=== PATIENT | male | born 1995 | race African-American/Black ===

== ENCOUNTER 2019-01-05 07:10 | Emergency (ER) | payer SELFPAY ==
[2019-01-05] MEDS ORDERED: ASPIRIN 81 MG CHEW TAB PO ONE (07:16)
[2019-01-05] MEDS ORDERED: 0.9 % SODIUM CHLORIDE 1,000 ML IV ONE (07:17)
--- NOTE | 2019-01-05 07:32 | ED Physician Documentation ---
General Adult - HISTORIAN Historian: patient - HPI Stated Complaint: chest pain Chief Complaint: Chest Pain Onset: hours (3) Timing: still present Severity: moderate Further Comments: yes (He states he has had a "cold" for about one week. He denies a fever. He has had a cough. He started around 3 am with chest pain on right side. he states the pain is increased with palpation to a "certain spot". Denies any other complaints. No nausea, denies any shortness of breath. No injury.) - ROS CONST: recent illness EYES/ENT: sore throat, nasal drainage, nasal congestion CVS/RESP: chest pain, cough. denies: shortness of breath GI/: none MS/SKIN/LYMPH: none NEURO/PSYCH: denies: headache, fainting, dizziness, tingling, numbness, difficulty walking, difficulty with speech, anxiety, depression - PAST HX Past History: none Surgeries/Procedures: none Immunizations: UTD Allergies/Adverse Reactions: Allergies Allergy/AdvReac Type Severity Reaction Status Date / Time No Known Allergies Allergy Unverified 01/05/19 08:25 Home Medications: Ambulatory Orders Medication Instructions Recorded NK 01/05/19 - SOCIAL HX Smoking History: non-smoker Alcohol Use: none Drug Use: none - FAMILY HX Family History: No - REVIEWED ASSESSMENTS Nursing Assessment Reviewed: Yes Vitals Reviewed: Yes Progress - Progress Progress: 0812: discussed findings. Will attempt med for pain relief. He is agreeable DG 0820: discussed plan of care. Pain is improved DG ED Results Lab/Radiology - Radiology Radiology Impressions: Examination: Portable chest History: Evaluate lungs. Sudden right side CP Comparison exam: None provided. Findings: Single view of the chest demonstrates a normal cardiac and mediastinal silhouette. Lung perez without focal infiltrate. No blunting of the costophrenic margins. Osseous structures are appropriate for age. Impression: No acute pulmonary process. Electronically signed on Jan 05, 2019 8:00:06 AM [employer]PORATION OFFICER by: Ernesto Styles - Orders Orders: ED Orders Category Date Time Status Continuous EKG monitoring Q30M Care 01/05/19 07:16 Active Continuous Pulse Oximetry Q30M Care 01/05/19 07:[address] IV Lock 1T Care 01/05/19 07:16 Active CHEST 1VIEW [RAD] Stat Exams 01/05/19 Ordered CBC/PLATELET/DIFF Routine Lab 01/05/19 07:16 Ordered CMP Routine Lab 01/05/19 07:16 Ordered D DIMER Stat Lab 01/05/19 Ordered TROPONIN I (cTnI) Stat Lab 01/05/19 Ordered 0.9 % Sodium Chloride [Normal Saline] 1,000 ml Med 01/05/19 07:17 Active IV NOW Aspirin [[facility]win] Med 01/05/19 07:16 Discontinued 324 mg PO NOW ONE Oxygen Daily Oxygen 01/05/19 07:30 Ordered EKG WITH COMPARISON Stat Ther 01/05/19 07:16 Ordered General Adult Physical Exam - PHYSICAL EXAM GENERAL APPEARANCE: mild distress EENT: eye inspection normal, no signs of dehydration NECK: normal inspection RESPIRATORY: no resp distress, other (tenderness to touch with Right upper chest ) CVS: reg rate & rhythm, heart sounds normal ABDOMEN: soft, normal bowel sounds, no distension BACK: normal inspection SKIN: warm/dry EXTREMITIES: non-tender NEURO: oriented X3 Discharge Clincal Impression: Chest pain Qualifiers: Chest pain type: unspecified Qualified Code(s): R07.9 - Chest pain, unspecified Referrals: Primary Doctor,No [Primary Care Provider] - 2 Days Comments: 1. Ibuprofen 800 mg take 1 by mouth every 12 hours as needed for pain 2. cyclobenzaprine 10 mg take 1 by mouth every 8 hours as needed for pain (muscle) 3. Medrol Dose pack as directed 4. Follow up with PCP in 2-4 days if no improvement 5. Return to ER for any concerns Condition: Stable Disposition: 01 HOME, SELF-CARE Decision to Admit: NO Date of Decison to Admit: 01/05/19 Decision Time: 08:20
[2019-01-05 07:39] LABS: BASOPHILS % 0.6 (0.0-1.5); EOSINOPHILS % 2.3 % (0.0-6.8); MEAN CORPUSCULAR HEMOGLOBIN 24.4 pg (28.0-34.0); MONOCYTES % 8.1 % (0.0-11.0); NEUTROPHILS # 5.7 # k/uL (1.4-7.7)
[2019-01-05 07:49] LABS: eGFR (Non-African) > 60
[2019-01-05] MEDS ORDERED: KETOROLAC TROMETHAMINE 30 MG/1ML VIAL IVP ONE (08:09)
[2019-01-05] MEDS ORDERED: KETOROLAC TROMETHAMINE 30 MG/1ML VIAL ONE (08:09)
[2019-01-05 10:26] VITALS: BP 100/80
--- NOTE | 2019-01-05 11:36 | Diagnostic Imaging Report ---
[facility] [address] [facility] [address], [place]. [address] Report Submission Date: Jan 05, 2019 8:00:06 AM CAD INTERN Patient Study Name: FRANCISCO NOEL Date: Jan 05, 2019 7:39:16 AM CAD INTERN Modality Type: DX Gender: M Description: CHEST 1VIEW : 89 [facility]: [facility] Physician: CASEY AYALA Examination: Portable chest History: Evaluate lungs. Sudden right side CP Comparison exam: None provided. Findings: Single view of the chest demonstrates a normal cardiac and mediastinal silhouette. Lung perez without focal infiltrate. No blunting of the costophrenic margins. Osseous structures are appropriate for age. Impression: No acute pulmonary process. Electronically signed on Jan 05, 2019 8:00:06 AM CAD INTERN by: Ernesto CUNHA
[2019-01-05 13:35] LABS: APPEARANCE,URINE CLEAR (CLEAR); COLOR,URINE YELLOW (YELLOW)
[2019-01-05 13:36] LABS: OCCULT BLOOD,URINE NEGATIVE (NEGATIVE); UROBILINOGEN URINE 0.2 Eu (0.2-1.0)
== END 2019-01-05 08:45 | disposition home or self-care (01) ==
LOC: ED 07:10
DX: R07.9 Chest pain, unspecified (principal)
CPT/HCPCS: 36415; 71045; 80053; 81002; 84484; 85025; 85379; 93005; 96374; 99283; 99284; J1885; J7030; S1016